=== PATIENT | female | born 1945 | race Two or more races ===

== ENCOUNTER 2023-12-20 20:57 | Emergency (ER) | payer OTHER ==
[~2023-12-20] VITALS: Ht 167.6 cm; Wt 74.8 kg
[~2023-12-20 20:57] MED LIST: ASPI81CT33 PO; ISOS5TAB PO; LOVA40TA PO; METO50TA20 PO; [UNRECOGNIZED DRUG - CODE] PO
[2023-12-20 21:07] VITALS: BP 151/109; PULSE 144; RESP 19; TEMP 97.9; O2SAT 99
[2023-12-20] MEDS ORDERED: KETOROLAC 30 MG/ML VIAL IM ONE (21:25)
[2023-12-20] MEDS: METOPROLOL 5 MG/5 ML VIAL IVP ONE (21:49)
[2023-12-20 21:54] LABS: BASOPHILS # (AUTO) 0.1 K/uL (0.00-0.22); EOSINOPHILS # (AUTO) 0.1 K/uL (0-0.4); EOSINOPHILS % (AUTO) 0.9 % (0.0-4.0); HEMATOCRIT 44.1 % (36-48); LYMPHOCYTES # (AUTO) 2.3 K/uL (2.5-16.5); LYMPHOCYTES % (AUTO) 27.2 % (20.5-51.1); MEAN CORPUSCULAR HEMOGLOBIN 32 pg (27-31); MEAN CORPUSCULAR HGB CONC 34 g/dL (33-37); MEAN CORPUSCULAR VOLUME 93.6 fL (80-94); MONOCYTES # (AUTO) 0.9 K/uL (0.8-1.0); MONOCYTES % (AUTO) 10.5 % (1.7-9.3); NEUTROPHILS % (AUTO) 60.4 % (42.2-75.2); PLATELET COUNT (AUTO) 313 K/uL (140-450); RED BLOOD CELL COUNT(AUTO) 4.71 MIL/uL (4.20-5.40); RED CELL DISTRIBUTION WIDTH 14.7 % (11.6-13.7); WHITE BLOOD COUNT (AUTO) 8.3 K/uL (4.8-10.8)
[2023-12-20] MEDS: KETOROLAC 30 MG/ML VIAL IVP ONE (21:59)
[2023-12-20] MEDS ORDERED: METOPROLOL 5 MG/5 ML VIAL IVP ONE (22:00)
[2023-12-20] MEDS: ACETAMINOPHEN EXTRA STRENGTH 500 MG TAB PO ONE (22:01)
[2023-12-20 22:13] LABS: ANION GAP 14.1 (8-16); CALCIUM 9.5 mg/dL (8.5-10.1); CARBON DIOXIDE 25.8 mmol/L (21-32); CHLORIDE 99 mmol/L (98-107); CREATININE 0.9 mg/dL (0.6-1.3); GLUCOSE 118 mg/dL (74-106); POTASSIUM 3.9 mmol/L (3.5-5.1); SODIUM SERUM 135 mmol/L (136-145); UREA NITROGEN, BLOOD 24 mg/dL (7-18)
[2023-12-20 22:19] LABS: PARTIAL THROMBOPLASTIN TIME 27.1 secs (22-35.6); PROTHROMBIN TIME 10.5 secs (10.8-13.4)
[2023-12-20] MEDS ORDERED: METOPROLOL 50 MG TAB ONE (22:40)
[2023-12-20] MEDS: METOPROLOL 50 MG TAB PO ONE (22:42)
[2023-12-21] MEDS ORDERED: DICL20GE TP (00:50)
[2023-12-21 01:00] VITALS: BP 156/86; PULSE 86; RESP 12; TEMP 98; O2SAT 98
== END 2023-12-21 01:00 | disposition home or self-care (01) ==
LOC: MED 20:57
DX: M54.32 Sciatica, left side (principal); M79.652 Pain in left thigh; R00.0 Tachycardia, unspecified; I10 Essential (primary) hypertension; I48.91 Unspecified atrial fibrillation; Z86.73 Personal history of transient ischemic attack (TIA), and cerebral infarction without residual deficits; Z79.899 Other long term (current) drug therapy; Z79.82 Long term (current) use of aspirin
CPT/HCPCS: 36415; 71045; 80048; 83880; 84484; 85025; 85610; 85730; 93005; 96374; 96375; 99285; J1885; J3490; Q0092